=== PATIENT | male | born 1965 ===

== ENCOUNTER 2025-04-15 17:26 | Inpatient (IN) ==
--- NOTE | 2025-04-15 17:40 | Emergency Department Note ---
Impression & Plan Acute lower GI bleeding, Syncope, MICHAELLE (acute kidney injury), Metabolic acidosis, Acidosis, lactic ED Provider Note NAME: MASON MINA AGE: 59 SEX: M : 1965 ARRIVES VIA: Ambulance INFORMANT: Patient, EMS ED PROVIDER(S): Matti Akins DO CHIEF COMPLAINT: Syncope HPI: The patient is a 59-year-old male who has a history of hypertension and high cholesterol presented to the emergency department for evaluation after having a syncopal episode. He states that he started having some abdominal cramping and thought he had to move his bowels. While he was moving his bowels he had an episode where he passed out. The patient denies having any fever or chest pain. He denies having any difficulty breathing. He is normally from [place] but is in this area to help his daughter pack up and move home at the end of the semester. The patient denies having any headache. The patient was hypotensive according to the prehospital personnel. The patient received IV fluids prior to arrival. ROS: See above HPI for pertinent positives & negatives. A total of 10 systems reviewed and were otherwise negative. PAST MEDICAL HISTORY: See Below PAST SURGICAL HISTORY: See Below FAMILY HISTORY: See Below SOCIAL HISTORY: See Below HOME MEDICATIONS: See Below ALLERGIES: See Below VITALS: See Below PHYSICAL EXAMINATION: GENERAL: The patient is awake and alert. The patient is somewhat anxious appearing. EYES: The conjunctivae are clear. The pupils are round and reactive. EARS, NOSE, MOUTH AND THROAT: The nose is without any evidence of any deformity. NECK: The neck is nontender and supple. RESPIRATORY: Normal respiratory effort is noted there is no evidence of wheezing rhonchi or rales CARDIOVASCULAR: Regular rate and rhythm noted there no murmurs rubs or gallops normal S1 normal S2. GASTROINTESTINAL: The abdomen was distended. There is diffuse tenderness to palpation but no specific guarding rigidity. MUSCULOSKELETAL/EXTREMITIES: There is no evidence of gross deformity full range of motion is noted in the hips and shoulders. SKIN: The skin is cool and dry. The skin is still not erythematous. There is no edema. NEUROLOGIC: Patient is awake alert and oriented x3 strength is symmetric patellar reflexes are 2+ bilaterally MEDICAL DECISION MAKING: The patient is a 59-year-old male who presented to the emergency department for an evaluation. The patient had a syncopal episode. The patient is up moving his daughter back home for the holiday. She is currently a student at [employer]. The patient has a history of hypertension as well as high cholesterol. The patient had a syncopal episode and was brought to the emergency department. Reportedly he was hypotensive on scene. The patient had an acceptable blood pressure but would fluctuate into a hypotensive range. For this reason he was started on IV fluids in the emergency department. He was found to have an elevated lactate as well as an elevated creatinine and white blood cell count. For this reason further testing was obtained including blood cultures. The patient was treated with IV antibiotics. He was further resuscitated with IV fluids. I discussed the patient's laboratory and radiographic studies with him. The patient started having episodes of bright red blood per rectum. I discussed his condition with the on-call [facility]ist. He would appear to be a better candidate for inpatient management. CT scans were obtained. The patient was much more comfortable on reevaluation. Triage Nursing notes reviewed. Prior medical records reviewed Vital Signs: reviewed and remarkable for initial hypotension. Differential diagnosis: Vasovagal event, dehydration, infection, hypoglycemia, electrolyte abnormalities, cardiac sources, intracerebral event, pulmonary embolism, seizure, toxicologic, neurologic, as well as other pathologies. ER treatment provided: See below Diagnostics interpreted by me: ECG: EKG was obtained in the emergency department. My interpretation is normal sinus rhythm at 80 bpm. There was no ectopy. Nonspecific ST depressions were noted in the lower lateral leads. QTc was 461 ms. A prehospital EKG was reviewed. My interpretation is sinus rhythm at 85 bpm. There is no PVCs noted. Nonspecific ST abnormalities were noted especially in the low lateral leads. This compares similar to the tracing obtained in the emergency department. Cardiac Monitoring: An order was placed for continuous cardiac monitoring. The monitor shows a rate of 77 bpm with sinus rhythm. Laboratory studies: As stated above and show below. Imaging studies: See below. Radiographic imaging was reviewed by myself Consultation(s): I discussed this case with Dr. Gayle who is on-call for the [facility] group. ED COURSE: Procedures: none Critical Care: I have personally spent greater than 45 minutes of critical care time in the direct management of this patient. This includes bedside care, interpretation of diagnostic studies, and testing, discussion with consultants, patient, and family members, and other required patient management activities. This 45 minutes is in excess of all separately billable procedures. Past Med/Surg History Problem List (Updated 04/15/25 @ 20:49 by Matti Akins DO) Acidosis, lactic (Acute) Metabolic acidosis (Acute) MICHAELLE (acute kidney injury) (Acute) Syncope (Acute) Acute lower GI bleeding (Acute) Medical History History of high cholesterol Hypertension Social History Smoking Status: Current every day smoker Tobacco Type: Cigarettes Preferred Language: Citizen Of [place] Feels Safe at Home: Yes Allergies Allergies Allergy/AdvReac Type Severity Reaction Status Date / Time Penicillins Allergy Unknown Unknown Verified 04/15/25 19:09 Home Meds Home Medications Medication Instructions Recorded Confirmed amlodipine 10 mg tablet 10 mg PO QAM 04/15/25 04/15/25 aspirin 81 mg tablet,delayed 81 mg PO QAM 04/15/25 04/15/25 release cephalexin 500 mg capsule 500 mg PO Q6 04/15/25 04/15/25 escitalopram oxalate 20 mg tablet 20 mg PO QAM 04/15/25 04/15/25 esomeprazole magnesium 40 mg 40 mg PO QAM 04/15/25 04/15/25 capsule,delayed release ezetimibe 10 mg tablet 10 mg PO QAM 04/15/25 04/15/25 hydrochlorothiazide 25 mg tablet 25 mg PO QAM 04/15/25 04/15/25 lamotrigine 200 mg tablet 300 mg PO QAM 04/15/25 04/15/25 losartan 100 mg tablet 100 mg PO QAM 04/15/25 04/15/25 rosuvastatin 40 mg tablet 40 mg PO QAM 04/15/25 04/15/25 sildenafil 100 mg tablet 100 mg PO DAILY PRN Erectile 04/15/25 04/15/25 Dysfunction tirzepatide (weight loss) 12.5 12.5 mg subcut WK 04/15/25 04/15/25 mg/0.5 mL subcutaneous pen injector (Zepbound) Results & Data (ED) Vital Signs Vital Signs - 24 hr 04/15/25 17:15 04/15/25 17:15 04/15/25 17:34 Temperature 36.4 C L Temperature Source Oral Pulse Rate 88 Pulse Rhythm Regular Pulse Strength Normal Respiratory Rate 18 Respiratory Effort / Characteristics Non-Labored Spontaneous Respiratory Depth Normal Respiratory Pattern Regular Blood Pressure 121/59 L Blood Pressure Mean 79 Blood Pressure Position Lying Pulse Oximetry 99 99 99 Oxygen Delivery Method Room Air Room Air Sepsis Recent Fever Within 48 Hours No Sepsis New/Unexplained Change in Mental Status No Sepsis Action Taken by Nursing No Action Required 04/15/25 17:52 04/15/25 19:26 04/15/25 19:43 Temperature Temperature Source Pulse Rate 75 76 64 Pulse Rhythm Pulse Strength Respiratory Rate 22 22 Respiratory Effort / Characteristics Respiratory Depth Respiratory Pattern Blood Pressure 126/83 134/81 Blood Pressure Mean 99 107 Blood Pressure Position Pulse Oximetry 97 Oxygen Delivery Method Sepsis Recent Fever Within 48 Hours Sepsis New/Unexplained Change in Mental Status Sepsis Action Taken by Nursing 04/15/25 19:45 04/15/25 20:00 04/15/25 20:15 Temperature Temperature Source Pulse Rate 68 67 68 Pulse Rhythm Pulse Strength Respiratory Rate 20 21 22 Respiratory Effort / Characteristics Respiratory Depth Respiratory Pattern Blood Pressure 126/74 132/74 128/73 Blood Pressure Mean 103 92 90 Blood Pressure Position Pulse Oximetry 98 97 98 Oxygen Delivery Method Sepsis Recent Fever Within 48 Hours Sepsis New/Unexplained Change in Mental Status Sepsis Action Taken by Nursing 04/15/25 20:31 Temperature Temperature Source Pulse Rate 77 Pulse Rhythm Pulse Strength Respiratory Rate 18 Respiratory Effort / Characteristics Respiratory Depth Respiratory Pattern Blood Pressure 119/70 Blood Pressure Mean 93 Blood Pressure Position Pulse Oximetry 98 Oxygen Delivery Method Sepsis Recent Fever Within 48 Hours Sepsis New/Unexplained Change in Mental Status Sepsis Action Taken by Long Term Medications Current Medication List: was personally reviewed by me Laboratory Data Attestation: I reviewed the patient's lab results. 04/15/25 17:40 04/15/25 17:40 Lab Results 04/15/25 04/15/25 04/15/25 Range/Units 17:40 17:44 18:54 WBC 22.86 H (4.8-10.8) K/ul RBC 5.77 (4.70-6.10) M/uL Hgb 18.1 H (14.0-18.0) g/dL POC Hgb 18.0 (14.0-18.0) g/dl Hct 52.2 H (42.0-52.0) % POC Hct 53 H (42-52) % MCV 90.5 (80.0-100.0) fL MCH 31.4 (25.0-34.0) pg MCHC 34.7 (32.0-36.0) g/dL RDW Std Deviation 41.0 (36.4-46.3) fL RDW Coeff of Augie 12.5 (11.5-14.5) % Plt Count 302 (130-400) K/uL MPV 9.1 L (9.4-12.4) fL Immature Gran % (Auto) 0.5 % Neut % (Auto) 81.6 % Lymph % (Auto) 14.5 % Woodruff % (Auto) 2.5 % Eos % (Auto) 0.6 % Baso % (Auto) 0.3 % Neut # (Auto) 18.67 H (1.40-6.50) K/uL Lymph # (Auto) 3.31 (1.20-3.40) K/uL Woodruff # (Auto) 0.57 (0.11-0.59) K/uL Eos # (Auto) 0.13 (0.00-0.50) K/uL Baso # (Auto) 0.06 (0.00-0.20) K/uL Immature Gran # (Auto) 0.12 (0.01-0.20) K/uL PT 12.4 H (9.0-12.0) Seconds INR 1.2 H (0.9-1.1) APTT 23 (21-31) Seconds PTT Ratio 0.8 VBG pH (7.36-7.41) VBG pCO2 (38-50) mmHg VBG pO2 mmHg VBG HCO3 mmol/L VBG O2 Saturation % VBG Base Excess mEq/L POC Sodium 139 (135-144) mmol/L Sodium 137 (136-145) mmol/L POC Potassium 3.0 L (3.3-5.0) mmol/L Potassium 3.1 L (3.5-5.1) mmol/L POC Chloride 101 (101-112) mmol/L Chloride 99 (98-107) mmol/L Carbon Dioxide 20 L (21-32) mmol/L POC Total CO2 18 L (24-31) mmol/L Anion Gap 18 H (3-11) POC Anion Gap 24.0 (16-25) mmol/L POC BUN 30 H (7-18) mg/dl BUN 29 H (6-23) mg/dl Creatinine 2.11 H (0.6-1.4) mg/dl POC Creatinine 2.3 H (0.6-1.3) mg/dl Est Cr Clr Drug Dosing Not Reportable eGFR 35.61 BUN/Creatinine Ratio 13.7 (10-20) Glucose 268 H (70-99(Fasting)) mg/dl POC Glucose (other) 255 H (70-99) mg/dl Lactate 6.0 H* (0.4-2.0) mmol/L Calcium 9.1 (8.6-10.3) mg/dl POC Ioniz Calcium Shelley 1.09 L (1.12-1.32) mmol/l Magnesium 2.3 (1.7-2.4) mg/dl Total Bilirubin 1.2 H (0.2-1.0) mg/dl AST 42 H (13-39) U/L ALT 37 (7-52) U/L Alkaline Phosphatase 86 (34-104) U/L Troponin I High Sens 21.0 H (0-20) pg/ml C-Reactive Protein < 0.50 (0-0.5) mg/dl Total Protein 6.9 (6.0-8.3) gm/dl Albumin 4.1 (3.4-5.0) gm/dl Globulin 2.8 (2.5-4.0) gm/dl Albumin/Globulin Ratio 1.5 (0.9-2) Procalcitonin 0.02 (0-0.5) ng/ml TSH 5.577 H (0.300-4.500) uIu/ml Free T4 0.72 (0.61-1.60) ng/dl Stl C. cayetanensis PCR (NotDetected) Stool Rotavirus A PCR (NotDetected) Stl Adenov F 40/41 PCR (NotDetected) Stool Astrovirus (PCR) (NotDetected) Stool Campylobacter PCR (NotDetected) Stl C. diff Tox B Gene (Neg) Stl C. diff 027-NAP1-BI Stool Cryptosporidium PCR (NotDetected) Stl E.coli Shiga Tox PCR (NotDetected) Stl Enterotoxigenic E PCR (NotDetected) Stool EPEC (PCR) (NotDetected) Stool EAEC (PCR) (NotDetected) Stl E. histolytica PCR (NotDetected) Stool Giardia Lamblia PCR (NotDetected) Stool Salmonella PCR (NotDetected) Stool Sapovirus (PCR) (NotDetected) Stl P. shigelloides PCR (NotDetected) Stl Shigella/EIEC PCR (NotDetected) St Y.enterocolitica PCR (NotDetected) Stool Vibrio (PCR) (NotDetected) Stl Vibrio cholerae PCR (NotDetected) Stl Norovirus GI/GII PCR (NotDetected) Ethyl Alcohol mg/dL < 10.0 (<10.0) mg/dl Blood Type Antibody Screen 04/15/25 04/15/25 04/15/25 Range/Units 19:13 19:28 19:54 WBC (4.8-10.8) K/ul RBC (4.70-6.10) M/uL Hgb (14.0-18.0) g/dL POC Hgb (14.0-18.0) g/dl Hct (42.0-52.0) % POC Hct (42-52) % MCV (80.0-100.0) fL MCH (25.0-34.0) pg MCHC (32.0-36.0) g/dL RDW Std Deviation (36.4-46.3) fL RDW Coeff of Augie (11.5-14.5) % Plt Count (130-400) K/uL MPV (9.4-12.4) fL Immature Gran % (Auto) % Neut % (Auto) % Lymph % (Auto) % Woodruff % (Auto) % Eos % (Auto) % Baso % (Auto) % Neut # (Auto) (1.40-6.50) K/uL Lymph # (Auto) (1.20-3.40) K/uL Woodruff # (Auto) (0.11-0.59) K/uL Eos # (Auto) (0.00-0.50) K/uL Baso # (Auto) (0.00-0.20) K/uL Immature Gran # (Auto) (0.01-0.20) K/uL PT (9.0-12.0) Seconds INR (0.9-1.1) APTT (21-31) Seconds PTT Ratio VBG pH 7.38 (7.36-7.41) VBG pCO2 44 (38-50) mmHg VBG pO2 21 mmHg VBG HCO3 26 mmol/L VBG O2 Saturation < 60.0 % VBG Base Excess 0.5 mEq/L POC Sodium (135-144) mmol/L Sodium (136-145) mmol/L POC Potassium (3.3-5.0) mmol/L Potassium (3.5-5.1) mmol/L POC Chloride (101-112) mmol/L Chloride (98-107) mmol/L Carbon Dioxide (21-32) mmol/L POC Total CO2 (24-31) mmol/L Anion Gap (3-11) POC Anion Gap (16-25) mmol/L POC BUN (7-18) mg/dl BUN (6-23) mg/dl Creatinine (0.6-1.4) mg/dl POC Creatinine (0.6-1.3) mg/dl Est Cr Clr Drug Dosing eGFR BUN/Creatinine Ratio (10-20) Glucose (70-99(Fasting)) mg/dl POC Glucose (other) (70-99) mg/dl Lactate (0.4-2.0) mmol/L Calcium (8.6-10.3) mg/dl POC Ioniz Calcium Shelley (1.12-1.32) mmol/l Magnesium (1.7-2.4) mg/dl Total Bilirubin (0.2-1.0) mg/dl AST (13-39) U/L ALT (7-52) U/L Alkaline Phosphatase (34-104) U/L Troponin I High Sens 49.7 H D (0-20) pg/ml C-Reactive Protein (0-0.5) mg/dl Total Protein (6.0-8.3) gm/dl Albumin (3.4-5.0) gm/dl Globulin (2.5-4.0) gm/dl Albumin/Globulin Ratio (0.9-2) Procalcitonin (0-0.5) ng/ml TSH (0.300-4.500) uIu/ml Free T4 (0.61-1.60) ng/dl Stl C. cayetanensis PCR Not Detected (NotDetected) Stool Rotavirus A PCR Not Detected (NotDetected) Stl Adenov F 40/41 PCR Not Detected (NotDetected) Stool Astrovirus (PCR) Not Detected (NotDetected) Stool Campylobacter PCR Not Detected (NotDetected) Stl C. diff Tox B Gene Negative Cdiff Gene (Neg) Stl C. diff 027-NAP1-BI NEGATIVE Stool Cryptosporidium PCR Not Detected (NotDetected) Stl E.coli Shiga Tox PCR Not Detected (NotDetected) Stl Enterotoxigenic E PCR Not Detected (NotDetected) Stool EPEC (PCR) Not Detected (NotDetected) Stool EAEC (PCR) Not Detected (NotDetected) Stl E. histolytica PCR Not Detected (NotDetected) Stool Giardia Lamblia PCR Not Detected (NotDetected) Stool Salmonella PCR Not Detected (NotDetected) Stool Sapovirus (PCR) Not Detected (NotDetected) Stl P. shigelloides PCR Not Detected (NotDetected) Stl Shigella/EIEC PCR Not Detected (NotDetected) St Y.enterocolitica PCR Not Detected (NotDetected) Stool Vibrio (PCR) Not Detected (NotDetected) Stl Vibrio cholerae PCR Not Detected (NotDetected) Stl Norovirus GI/GII PCR Not Detected (NotDetected) Ethyl Alcohol mg/dL (<10.0) mg/dl Blood Type A Positive Antibody Screen NEGATIVE Administered Medications Potassium Chloride 20 meq/ (Lactated Ringer's) 1,010 mls @ 500 mls/hr IV .Q2H2M ONE Stop: 04/15/25 22:03 Last Admin: 04/15/25 20:46 Dose: 500 mls/hr Documented By: audie Metronidazole (Flagyl) 500 mg in 100 mls @ 100 mls/hr IV NOW STA; Protocol Stop: 04/15/25 21:08 Last Admin: 04/15/25 20:46 Dose: 100 mls/hr Documented By: audie Discontinued Medications Sodium Chloride (Nss) 1,000 mls @ 999 mls/hr IV .Q1H1M JOHNNIE Stop: 04/15/25 18:45 Last Infusion: 04/15/25 20:41 Dose: Infused Documented By: audie Admin: 04/15/25 19:34 Dose: 999 mls/hr Documented By: LEOLA Sodium Chloride (Nss) 1,000 mls @ 999 mls/hr IV .Q1H1M ONE Stop: 04/15/25 18:48 Last Infusion: 04/15/25 20:40 Dose: Infused Documented By: audie Admin: 04/15/25 19:28 Dose: 999 mls/hr Documented By: LEOLA Piperacillin Sod/Tazobactam Sod (Zosyn) 4.5 gm in 100 mls @ 200 mls/hr IV NOW ONE; Protocol Stop: 04/15/25 19:33 Last Admin: 04/15/25 19:40 Dose: Not Given Documented By: audie Cefoxitin Sodium (Mefoxin) 2,000 mg in 60 mls @ 100 mls/hr IV NOW STA Stop: 04/15/25 19:41 Last Infusion: 04/15/25 20:40 Dose: Infused Documented By: audie Admin: 04/15/25 19:30 Dose: 100 mls/hr Documented By: LEOLA Ioversol (Optiray 320 125ml) 93 ml IV ONCE ONE Stop: 04/15/25 19:19 Last Admin: 04/15/25 19:44 Dose: Not Given Documented By: LEOLA Ioversol (Optiray 320 125ml) 119 ml IV ONCE ONE Stop: 04/15/25 19:20 Last Admin: 04/15/25 19:19 Dose: 119 ml Documented By: CHRISTEL Ondansetron HCl (Ondansetron Inj 2 Mg/Ml 2 Ml Vial) 4 mg IV NOW STA Stop: 04/15/25 19:07 Last Admin: 04/15/25 19:28 Dose: 4 mg Documented By: LEOLA Potassium Chloride (Potassium Chloride Crtab 20 Meq Tabcr) 40 meq PO NOW STA Stop: 04/15/25 20:06 Last Admin: 04/15/25 20:46 Dose: 40 meq Documented By: audie Imaging Data Attestation: I personally reviewed and interpreted this imaging study as follows: My Impression: CT of the abdomen and pelvis was obtained in the emergency department. My interpretation is no free air or definite bowel obstruction, final report below. Radiologist's Impression: Head CT 04/15/25 17:34 CT of the head without contrast Technique: Noncontrast axial images of the head. Coronal and sagittal reformatted images made available for review No comparison Findings: No acute intracranial hemorrhage. No acute transcortical infarct. No midline shift. Ventricles, sulci, cisterns within normal limits. Bone windows demonstrate no focal abnormality Impression Head CT negative for acute intracranial abnormality. Electronically signed by Khai Nichols 04-15-2025 8:46 PM Chest CTA 04/15/25 18:36 CT angiogram of the chest Technique: Postcontrast axial image chest. Coronal and sagittal reformatted images made for review No comparison Findings: Exam limited secondary to phase of contrast administration. No large central pulmonary embolus present. Thoracic aorta is unremarkable. Coronary artery calcifications. No acute pulmonary pathology. Bone windows demonstrate no focal abnormality Impression Exam limited as described above No large central pulmonary embolus Electronically signed by Khai Nichols 04-15-2025 8:46 PM Abdomen/Pelvis CTA 04/15/25 19:07 CT angiogram of the abdomen and pelvis. Technique: Postcontrast axial images of the abdomen and pelvis. Coronal and sagittal reformatted images made available for review No comparison Findings: The presence or absence of a gastrointestinal hemorrhage is somewhat limited secondary to lack of a unenhanced phase of contrast administration. Despite this limitation no area of active contrast extravasation is identified on this exam. Subtle inflammatory changes and wall thickening involving the entire descending colon consistent with very mild colitis likely infectious or inflammatory etiology. Normal-appearing retrocecal appendix. No free air or intestinal obstruction. Solid abdominal organs unremarkable in appearance. No stenosis, dissection, aneurysm, or occlusion. Mesenteric and renal arteries are widely patent. Common external iliac arteries are widely patent. Internal iliac arteries are widely patent. Both common femoral arteries are widely patent. The visualized portion of the profunda femoris and superficial femoral arteries are all widely patent. Bone windows demonstrate no focal abnormality Impression Mild descending colitis likely of infectious or inflammatory etiology. No evidence of gastrointestinal hemorrhage identified on this study. Electronically signed by Khai Nichols 04-15-2025 8:46 PM Discharge Plan Visit Data Chief Complaint: Syncope Stated Complaint: syncope ED Provider: Matti Akins Discharge Problem: Acute lower GI bleeding, Syncope, MICHAELLE (acute kidney injury), Metabolic acidosis, Acidosis, lactic Patient Disposition: Being Evaluated by Hospitalist Condition: Fair Forms Stand Alone Forms: My [facility] Prescriptions Prescriptions: No Action lamotrigine 200 mg tablet 300 mg PO QAM Rx Instructions: 1 & 1/2 tablet dose sildenafil 100 mg tablet 100 mg PO DAILY PRN (Reason: Erectile Dysfunction) amlodipine 10 mg tablet 10 mg PO QAM cephalexin 500 mg capsule 500 mg PO Q6 Rx Instructions: ordered 04/06/25 for 10 days esomeprazole magnesium 40 mg capsule,delayed release(DR/EC) 40 mg PO QAM hydrochlorothiazide 25 mg tablet 25 mg PO QAM losartan 100 mg tablet 100 mg PO QAM escitalopram oxalate 20 mg tablet 20 mg PO QAM ezetimibe 10 mg tablet 10 mg PO QAM rosuvastatin 40 mg tablet 40 mg PO QAM Zepbound 12.5 mg/0.5 mL pen injector 12.5 mg SUBCUT WK Rx Instructions: tuesdays aspirin [Aspirin Low-Strength] 81 mg Tablet,Delayed Release (Dr/Ec) 81 mg PO QAM Referrals Referrals: PCP,NO [Primary Care Provider] -
[2025-04-15 17:58] LABS: Hematocrit (blood only) 52.2 % (42.0-52.0); Hemoglobin 18.1 g/dL (14.0-18.0); Immature Granulocytes # (auto) 0.12 K/uL (0.01-0.20); Immature Granulocytes % (auto) 0.5 %; Mean Corpuscular Hemoglobin 31.4 pg (25.0-34.0); Mean Corpuscular Volume 90.5 fL (80.0-100.0); Platelet Count 302 K/uL (130-400); RDW Standard Deviation 41.0 fL (36.4-46.3); Red Blood Count 5.77 M/uL (4.70-6.10); White Blood Count 22.86 K/ul (4.8-10.8)
[2025-04-15 18:14] LABS: Alanine Aminotransferase 37 U/L (7-52); Albumin Globulin Ratio 1.5 (0.9-2); Albumin Level 4.1 gm/dl (3.4-5.0); Alkaline Phosphatase 86 U/L (34-104); Anion Gap 18 (3-11); Bilirubin,Total 1.2 mg/dl (0.2-1.0); Blood Urea Nitrogen 29 mg/dl (6-23); Calcium 9.1 mg/dl (8.6-10.3); Carbon Dioxide 20 mmol/L (21-32); Chloride 99 mmol/L (98-107); Globulin 2.8 gm/dl (2.5-4.0); Glucose 268 mg/dl (70-99(Fasting)); Magnesium 2.3 mg/dl (1.7-2.4); Potassium 3.1 mmol/L (3.5-5.1); Sodium 137 mmol/L (136-145); Total Protein 6.9 gm/dl (6.0-8.3)
[2025-04-15 18:22] LABS: INR 1.2 (0.9-1.1); Partial Thromboplastin Time 23 Seconds (21-31); Prothrombin Time 12.4 Seconds (9.0-12.0)
[2025-04-15 18:29] LABS: Thyroid Stimulating Hormone 5.577 uIu/ml (0.300-4.500)
[2025-04-15 19:04] LABS: T4 Free Thyroxine 0.72 ng/dl (0.61-1.60)
[2025-04-15] MEDS: OPTIRAY 320 125ml IV ONE ×2 (19:19→19:44)
[2025-04-15] MEDS: SODIUM CHLORIDE 0.9% 1,000 ML IV ONE (19:28)
[2025-04-15] MEDS: ONDANSETRON INJ 2 MG/ML 2 ML VIAL IV STA (19:28)
[2025-04-15] MEDS: cefOXitin 2,000 MG/60 ML BAG IV STA (19:30)
[2025-04-15] MEDS: SODIUM CHLORIDE 0.9% 1,000 ML IV SCH (19:34)
[2025-04-15] MEDS: PIPERACILLIN/TAZOBACTAM 4.5 GM/100 ML BAG IV ONE (19:40)
[2025-04-15 20:10] LABS: Base Excess VBG 0.5 mEq/L; HCO3 VBG 26 mmol/L; Oxygen Saturation VBG < 60.0 %; PCO2 VBG 44 mmHg (38-50); PO2 VBG 21 mmHg; pH VBG 7.38 (7.36-7.41)
[2025-04-15 20:11] LABS: Cdiff Toxin B Gene (2yr or >) Negative Cdiff Gene (Neg)
[2025-04-15 20:44] LABS: Adenovirus F 40/41 PCR Not Detected (NotDetected); Campylobacter PCR Not Detected (NotDetected); Enteroaggregative E.coli(EAEC) Not Detected (NotDetected); Shiga-like Toxin E.coli (STEC) Not Detected (NotDetected); Vibrio species PCR Not Detected (NotDetected)
[2025-04-15] MEDS: metroNIDAZOLE 500 MG/100 ML BAG IV STA (20:46)
[2025-04-15] MEDS: POTASSIUM CHLORIDE CRTAB 20 MEQ TABCR PO STA (20:46)
[2025-04-15] MEDS: POTASSIUM CHLORIDE 20 MEQ in LACTATED RINGER'S 1,000 ML IV ONE ×2 (20:46→22:57)
--- NOTE | 2025-04-15 20:46 | CT Scan Report ---
CT angiogram of the chest Technique: Postcontrast axial image chest. Coronal and sagittal reformatted images made for review No comparison Findings: Exam limited secondary to phase of contrast administration. No large central pulmonary embolus present. Thoracic aorta is unremarkable. Coronary artery calcifications. No acute pulmonary pathology. Bone windows demonstrate no focal abnormality Impression Exam limited as described above No large central pulmonary embolus Electronically signed by Khai Nichols 04-15-2025 8:46 PM
--- NOTE | 2025-04-15 20:47 | CT Scan Report ---
CT angiogram of the abdomen and pelvis. Technique: Postcontrast axial images of the abdomen and pelvis. Coronal and sagittal reformatted images made available for review No comparison Findings: The presence or absence of a gastrointestinal hemorrhage is somewhat limited secondary to lack of a unenhanced phase of contrast administration. Despite this limitation no area of active contrast extravasation is identified on this exam. Subtle inflammatory changes and wall thickening involving the entire descending colon consistent with very mild colitis likely infectious or inflammatory etiology. Normal-appearing retrocecal appendix. No free air or intestinal obstruction. Solid abdominal organs unremarkable in appearance. No stenosis, dissection, aneurysm, or occlusion. Mesenteric and renal arteries are widely patent. Common external iliac arteries are widely patent. Internal iliac arteries are widely patent. Both common femoral arteries are widely patent. The visualized portion of the profunda femoris and superficial femoral arteries are all widely patent. Bone windows demonstrate no focal abnormality Impression Mild descending colitis likely of infectious or inflammatory etiology. No evidence of gastrointestinal hemorrhage identified on this study. Electronically signed by Khai Nichols 04-15-2025 8:46 PM
--- NOTE | 2025-04-15 20:47 | CT Scan Report ---
CT of the head without contrast Technique: Noncontrast axial images of the head. Coronal and sagittal reformatted images made available for review No comparison Findings: No acute intracranial hemorrhage. No acute transcortical infarct. No midline shift. Ventricles, sulci, cisterns within normal limits. Bone windows demonstrate no focal abnormality Impression Head CT negative for acute intracranial abnormality. Electronically signed by Khai Nichols 04-15-2025 8:46 PM
--- NOTE | 2025-04-15 20:50 | History & Physical Report ---
Date of Service April 15, 2025 Assessment & Plan (1) Colitis: Plan: Assessment and plan below following discussion of case with ED provider and reviewing patient history/pertinent normal/abnormal diagnostic test results. Hemorrhagic colitis Syncope Multifactorial Vagal component given bearing-down history on the commode orthostasis secondary to LGIB given pre-ED hypotension as per EMS account ARF, lactic acidosis secondary to illness Troponin elevation in the setting of kidney dysfunction and daughter's CPR efforts prior to EMS arrival, patient without chest pain/SOB hypertension, currently stable hyperlipidemia, on statin Rx lung carcinoid status post surgery, in remission prediabetes GERD, on PPI mood disorder, stable occasional heavy alcohol intake dental infection ongoing Keflex Rx Hypokalemia secondary to home diuretic Rx/diarrhea Subclinical hypothyroidism, elevated TSH with normal free T4 past tobacco abuse Admit to med/tele Clear liquid diet for now Ceftriaxone, Flagyl for hemorrhagic colitis Hold home aspirin for now (Patient taking medication given strong family history of heart disease as per her account.) Follow H&H, transfuse PRBC to maintain hemoglobin of at least 7 and or for symptomatic anemia GI consult re: hemorrhagic colitis Check orthostatic vitals Baseline UA, monitor creatinine and lactic acid response to IVF, appropriate to hold losartan/HCTZ Rx until creatinine back to baseline Follow troponin, TTE for progression GINA S at risk protocol, DT precautions Replace potassium Check hemoglobin A1c with a.m. labs Recheck TSH outpatient next month DVT prophylaxis. SCDs re: GI bleed Full code Patient daughter requesting updates providers. Ms. Nishi Dinh, contact #[phone]. Text document was generated using [employer] voice recognition software. It may contain grammatical or spelling errors. Kindly contact undersigned for clarification of any documentation item in question. History of Present Illness Chief Complaint: Syncope Primary Care Provider: Dr. Juan Abad of [place], [place] History obtained from patient, family, and records. Medical history significant for hypertension, hyperlipidemia, lung carcinoid status post surgery, prediabetes, GERD, mood disorder, occasional heavy alcohol intake, dental infection ongoing Keflex Rx, past tobacco abuse. 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 Daughter is graduating from [employer] next week. Patient had sudden onset of achy left-sided abdominal pain accompanied by sudden urge to defecate. Patient straining hard to move bowels on the commode. Unwitnessed syncopal event causing patient to fall off the toilet. No head trauma. No witnessed seizures. Patient daughter heard noise and found patient "breathing not very good." Patient daughter unable to check for pulse at onset. She called 911 who recommended chest compressions. Patient noted to have a pulse and spontaneously breathing although diaphoretic upon EMS arrival. Patient woke up with a sternal rub. Patient noted to be hypotensive as per EMS. Patient denies headache, chest pain, SOB, cough. Some nausea, no emesis. Last EtOH intake was about 2 days ago. Occasionally heavy as per patient admission. IV cefoxitin administered at the ER. Copious bloody diarrhea noted at the Emergency Room. No prior episodes. 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 Allergies Allergy/AdvReac Type Severity Reaction Status Date / Time Penicillins Allergy Unknown Unknown Verified 04/15/25 19:09 Home Medications Medication Instructions Recorded Confirmed Type amlodipine 10 mg tablet 10 mg PO QAM 04/15/25 04/15/25 History aspirin 81 mg tablet,delayed 81 mg PO QAM 04/15/25 04/15/25 History release cephalexin 500 mg capsule 500 mg PO Q6 04/15/25 04/15/25 History escitalopram oxalate 20 mg tablet 20 mg PO QAM 04/15/25 04/15/25 History esomeprazole magnesium 40 mg 40 mg PO QAM 04/15/25 04/15/25 History capsule,delayed release ezetimibe 10 mg tablet 10 mg PO QAM 04/15/25 04/15/25 History hydrochlorothiazide 25 mg tablet 25 mg PO QAM 04/15/25 04/15/25 History lamotrigine 200 mg tablet 300 mg PO QAM 04/15/25 04/15/25 History losartan 100 mg tablet 100 mg PO QAM 04/15/25 04/15/25 History rosuvastatin 40 mg tablet 40 mg PO QAM 04/15/25 04/15/25 History sildenafil 100 mg tablet 100 mg PO DAILY PRN Erectile 04/15/25 04/15/25 History Dysfunction tirzepatide (weight loss) 12.5 12.5 mg subcut WK 04/15/25 04/15/25 History mg/0.5 mL subcutaneous pen injector (Zepbound) Past Med/Surg History Problem List (Updated 04/15/25 @ 23:57 by John Gayle MD) Colitis Acidosis, lactic (Acute) Metabolic acidosis (Acute) MICHAELLE (acute kidney injury) (Acute) Syncope (Acute) Acute lower GI bleeding (Acute) Medical History History of high cholesterol Hypertension Social History Smoking Status: Never smoker Tobacco Type: Cigarettes Do You Dip or Chew Tobacco: Yes; Hx Alcohol Use: Yes Alcohol type: other Hx Substance Use: No Preferred Language: Italian Communication Ability: Effective Manufacturing Support 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 Required: No Beliefs That Will Affect Care: None Current Living Situation: Parent Other Information That Helps Us Care for You: No Feels Safe at Home: Yes Safety Concerns: Feels Safe At This Time Assistive Devices: Glasses Review of Systems Review of Systems: As per HPI, all other systems reviewed and negative Physical Exam Physical Exam: GENERAL: uncomfortable, obese, no respiratory distress SKIN: Normal color, warm HEENT: Alopecia, pink palpebral conjunctivae, no ptosis, dry buccal mucosa NECK : Supple, short neck, no tenderness CHEST : CTA, no tenderness HEART : RRR, no obvious murmurs ABDOMEN: Some distention, left-sided abdominal tenderness EXTREMITIES : No LE swelling/tenderness, palpable pulses, no other conspicuous deformities noted NEUROLOGIC : Coherent, no facial asymmetry, no other gross focality Results & Data Results & Data Vital Signs (Past 12 Hours) Vital Signs Temp Pulse Resp BP Pulse Ox O2 Del Method 04/15/25 20:31 77 18 119/70 98 04/15/25 20:15 68 22 128/73 98 04/15/25 20:00 67 21 132/74 97 04/15/25 19:45 68 20 126/74 98 04/15/25 19:43 64 22 134/81 97 04/15/25 19:26 76 22 126/83 04/15/25 17:52 75 04/15/25 17:34 99 04/15/25 17:15 99 Room Air 04/15/25 17:15 36.4 C L 88 18 121/59 L 99 Room Air Laboratory Results Laboratory Results WBC 22.86 K/ul (4.8-10.8) H 04/15/25 17:40 RBC 5.77 M/uL (4.70-6.10) 04/15/25 17:40 Hgb 18.1 g/dL (14.0-18.0) H 04/15/25 17:40 POC Hgb 18.0 g/dl (14.0-18.0) 04/15/25 17:44 Hct 52.2 % (42.0-52.0) H 04/15/25 17:40 POC Hct 53 % (42-52) H 04/15/25 17:44 MCV 90.5 fL (80.0-100.0) 04/15/25 17:40 MCH 31.4 pg (25.0-34.0) 04/15/25 17:40 MCHC 34.7 g/dL (32.0-36.0) 04/15/25 17:40 RDW Std Deviation 41.0 fL (36.4-46.3) 04/15/25 17:40 RDW Coeff of Augie 12.5 % (11.5-14.5) 04/15/25 17:40 Plt Count 302 K/uL (130-400) 04/15/25 17:40 MPV 9.1 fL (9.4-12.4) L 04/15/25 17:40 Immature Gran % (Auto) 0.5 % 04/15/25 17:40 Neut % (Auto) 81.6 % 04/15/25 17:40 Lymph % (Auto) 14.5 % 04/15/25 17:40 [place] % (Auto) 2.5 % 04/15/25 17:40 Eos % (Auto) 0.6 % 04/15/25 17:40 Baso % (Auto) 0.3 % 04/15/25 17:40 Neut # (Auto) 18.67 K/uL (1.40-6.50) H 04/15/25 17:40 Lymph # (Auto) 3.31 K/uL (1.20-3.40) 04/15/25 17:40 [place] # (Auto) 0.57 K/uL (0.11-0.59) 04/15/25 17:40 Eos # (Auto) 0.13 K/uL (0.00-0.50) 04/15/25 17:40 Baso # (Auto) 0.06 K/uL (0.00-0.20) 04/15/25 17:40 Immature Gran # (Auto) 0.12 K/uL (0.01-0.20) 04/15/25 17:40 PT 12.4 Seconds (9.0-12.0) H 04/15/25 17:40 INR 1.2 (0.9-1.1) H 04/15/25 17:40 APTT 23 Seconds (21-31) 04/15/25 17:40 PTT Ratio 0.8 04/15/25 17:40 VBG pH 7.38 (7.36-7.41) 04/15/25 19:54 VBG pCO2 44 mmHg (38-50) 04/15/25 19:54 VBG pO2 21 mmHg 04/15/25 19:54 VBG HCO3 26 mmol/L 04/15/25 19:54 VBG O2 Saturation < 60.0 % 04/15/25 19:54 VBG Base Excess 0.5 mEq/L 04/15/25 19:54 POC Sodium 139 mmol/L (135-144) 04/15/25 17:44 Sodium 137 mmol/L (136-145) 04/15/25 17:40 POC Potassium 3.0 mmol/L (3.3-5.0) L 04/15/25 17:44 Potassium 3.1 mmol/L (3.5-5.1) L 04/15/25 17:40 POC Chloride 101 mmol/L (101-112) 04/15/25 17:44 Chloride 99 mmol/L (98-107) 04/15/25 17:40 Carbon Dioxide 20 mmol/L (21-32) L 04/15/25 17:40 POC Total CO2 18 mmol/L (24-31) L 04/15/25 17:44 Anion Gap 18 (3-11) H 04/15/25 17:40 POC Anion Gap 24.0 mmol/L (16-25) 04/15/25 17:44 POC BUN 30 mg/dl (7-18) H 04/15/25 17:44 BUN 29 mg/dl (6-23) H 04/15/25 17:40 Creatinine 2.11 mg/dl (0.6-1.4) H 04/15/25 17:40 POC Creatinine 2.3 mg/dl (0.6-1.3) H 04/15/25 17:44 Est Cr Clr Drug Dosing Not Reportable 04/15/25 17:40 eGFR 35.61 04/15/25 17:40 BUN/Creatinine Ratio 13.7 (10-20) 04/15/25 17:40 Glucose 268 mg/dl (70-99(Fasting)) H 04/15/25 17:40 POC Glucose (other) 255 mg/dl (70-99) H 04/15/25 17:44 Lactate 6.0 mmol/L (0.4-2.0) H* 04/15/25 18:54 Calcium 9.1 mg/dl (8.6-10.3) 04/15/25 17:40 POC Ioniz Calcium Shelley 1.09 mmol/l (1.12-1.32) L 04/15/25 17:44 Magnesium 2.3 mg/dl (1.7-2.4) 04/15/25 17:40 Total Bilirubin 1.2 mg/dl (0.2-1.0) H 04/15/25 17:40 AST 42 U/L (13-39) H 04/15/25 17:40 ALT 37 U/L (7-52) 04/15/25 17:40 Alkaline Phosphatase 86 U/L (34-104) 04/15/25 17:40 Troponin I High Sens 49.7 pg/ml (0-20) H D 04/15/25 19:28 C-Reactive Protein < 0.50 mg/dl (0-0.5) 04/15/25 17:40 Total Protein 6.9 gm/dl (6.0-8.3) 04/15/25 17:40 Albumin 4.1 gm/dl (3.4-5.0) 04/15/25 17:40 Globulin 2.8 gm/dl (2.5-4.0) 04/15/25 17:40 Albumin/Globulin Ratio 1.5 (0.9-2) 04/15/25 17:40 Procalcitonin 0.02 ng/ml (0-0.5) 04/15/25 17:40 TSH 5.577 uIu/ml (0.300-4.500) H 04/15/25 17:40 Free T4 0.72 ng/dl (0.61-1.60) 04/15/25 17:40 Stl C. cayetanensis PCR Not Detected (NotDetected) 04/15/25 19:13 Stool Rotavirus A PCR Not Detected (NotDetected) 04/15/25 19:13 Stl Adenov F 41 PCR Not Detected (NotDetected) 04/15/25 19:13 Stool Astrovirus (PCR) Not Detected (NotDetected) 04/15/25 19:13 Stool Campylobacter PCR Not Detected (NotDetected) 04/15/25 19:13 Stl C. diff Tox B Gene Negative Cdiff Gene (Neg) 04/15/25 19:13 Stl C. diff [id number] NEGATIVE 04/15/25 19:13 Stool Cryptosporidium PCR Not Detected (NotDetected) 04/15/25 19:13 Stl E.coli Shiga Tox PCR Not Detected (NotDetected) 04/15/25 19:13 Stl Enterotoxigenic E PCR Not Detected (NotDetected) 04/15/25 19:13 Stool EPEC (PCR) Not Detected (NotDetected) 04/15/25 19:13 Stool EAEC (PCR) Not Detected (NotDetected) 04/15/25 19:13 Stl E. histolytica PCR Not Detected (NotDetected) 04/15/25 19:13 Stool Giardia Lamblia PCR Not Detected (NotDetected) 04/15/25 19:13 Stool Salmonella PCR Not Detected (NotDetected) 04/15/25 19:13 Stool Sapovirus (PCR) Not Detected (NotDetected) 04/15/25 19:13 Stl P. shigelloides PCR Not Detected (NotDetected) 04/15/25 19:13 Stl Shigella/EIEC PCR Not Detected (NotDetected) 04/15/25 19:13 St Y.enterocolitica PCR Not Detected (NotDetected) 04/15/25 19:13 Stool Vibrio (PCR) Not Detected (NotDetected) 04/15/25 19:13 Stl Vibrio cholerae PCR Not Detected (NotDetected) 04/15/25 19:13 Stl Norovirus GI/GII PCR Not Detected (NotDetected) 04/15/25 19:13 Ethyl Alcohol mg/dL < 10.0 mg/dl (<10.0) 04/15/25 17:40 Blood Type A Positive 04/15/25 19:28 Antibody Screen NEGATIVE 04/15/25 19:[address] 04/15/25 17:34 CT of the head without contrast Technique: Noncontrast axial images of the head. Coronal and sagittal reformatted images made available for review No comparison Findings: No acute intracranial hemorrhage. No acute transcortical infarct. No midline shift. Ventricles, sulci, cisterns within normal limits. Bone windows demonstrate no focal abnormality Impression Head CT negative for acute intracranial abnormality. Electronically signed by Khai Nichols 04-15-2025 8:46 PM Chest CTA 04/15/25 18:36 CT angiogram of the chest Technique: Postcontrast axial image chest. Coronal and sagittal reformatted images made for review No comparison Findings: Exam limited secondary to phase of contrast administration. No large central pulmonary embolus present. Thoracic aorta is unremarkable. Coronary artery calcifications. No acute pulmonary pathology. Bone windows demonstrate no focal abnormality Impression Exam limited as described above No large central pulmonary embolus Electronically signed by Khai Nichols 04-15-2025 8:46 PM Abdomen/Pelvis CTA 04/15/25 19:07 CT angiogram of the abdomen and pelvis. Technique: Postcontrast axial images of the abdomen and pelvis. Coronal and sagittal reformatted images made available for review No comparison Findings: The presence or absence of a gastrointestinal hemorrhage is somewhat limited secondary to lack of a unenhanced phase of contrast administration. Despite this limitation no area of active contrast extravasation is identified on this exam. Subtle inflammatory changes and wall thickening involving the entire descending colon consistent with very mild colitis likely infectious or inflammatory etiology. Normal-appearing retrocecal appendix. No free air or intestinal obstruction. Solid abdominal organs unremarkable in appearance. No stenosis, dissection, aneurysm, or occlusion. Mesenteric and renal arteries are widely patent. Common external iliac arteries are widely patent. Internal iliac arteries are widely patent. Both common femoral arteries are widely patent. The visualized portion of the profunda femoris and superficial femoral arteries are all widely patent. Bone windows demonstrate no focal abnormality Impression Mild descending colitis likely of infectious or inflammatory etiology. No evidence of gastrointestinal hemorrhage identified on this study. Electronically signed by Khai Nichols 04-15-2025 8:46 PM Diagnostic Findings EKG as per my interpretation :Rate 80, NSR, normal axis, inferior infarct, no ischemia
[2025-04-15 21:20] LABS: Hematocrit (blood only) 47.2 % (42.0-52.0); Hemoglobin 16.9 g/dL (14.0-18.0)
[2025-04-15] MEDS ORDERED: ACETAMINOPHEN 325 MG TAB PO PRN (21:29)
[2025-04-15 22:10] LABS: Creatine Kinase 395 U/L (30-223)
[2025-04-15] MEDS: THIAMINE HCL 100 MG in SYRINGE 9 ML IV STA (22:29)
[2025-04-15] MEDS: PROMETHAZINE 12.5 MG/50.5 ML BAG IV STA (22:31)
[2025-04-15] MEDS: ACETAMINOPHEN 1,000 MG/100 ML VIAL IV STA (22:35)
[2025-04-15] MEDS: LOPERAMIDE HCL 2 MG CAP PO STA (22:53)
[2025-04-15] MEDS: LORazepam 1 MG/1 ML SYR ED Inj Use IV STA (22:53)
[2025-04-16 00:47] LABS: Hematocrit (blood only) 43.4 % (42.0-52.0); Hemoglobin 15.4 g/dL (14.0-18.0)
[2025-04-16] MEDS: cefTRIAXone SODIUM 2,000 MG/50 ML BAG IV SCH (03:22)
[2025-04-16] MEDS: metroNIDAZOLE 500 MG/100 ML BAG IV SCH (05:48)
[2025-04-16 07:22] LABS: Hematocrit (blood only) 41.8 % (42.0-52.0); Hemoglobin 15.1 g/dL (14.0-18.0); Immature Granulocytes # (auto) 0.05 K/uL (0.01-0.20); Immature Granulocytes % (auto) 0.3 %; Mean Corpuscular Hemoglobin 32.5 pg (25.0-34.0); Mean Corpuscular Volume 90.1 fL (80.0-100.0); Platelet Count 256 K/uL (130-400); RDW Standard Deviation 41.2 fL (36.4-46.3); Red Blood Count 4.64 M/uL (4.70-6.10); White Blood Count 18.94 K/ul (4.8-10.8)
[2025-04-16 07:44] LABS: Alanine Aminotransferase 31.0 U/L (7-52); Albumin Globulin Ratio 2.0 (0.9-2); Albumin Level 4.5 gm/dl (3.4-5.0); Alkaline Phosphatase 68.0 U/L (34-104); Anion Gap 9.0 (3-11); Bilirubin,Total 1.0 mg/dl (0.2-1.0); Blood Urea Nitrogen 21.0 mg/dl (6-23); Calcium 8.4 mg/dl (8.6-10.3); Carbon Dioxide 24.0 mmol/L (21-32); Chloride 103.0 mmol/L (98-107); Creatine Kinase 470.0 U/L (30-223); Creatinine Clr Calc Pharmacy 91.5 ml/min; Globulin 2.3 gm/dl (2.5-4.0); Glucose 125.0 mg/dl (70-99(Fasting)); Potassium 4.2 mmol/L (3.5-5.1); Sodium 136.0 mmol/L (136-145); Total Protein 6.8 gm/dl (6.0-8.3)
[2025-04-16 08:07] LABS: Hemoglobin A1C 5.3 % (4.5-5.6)
[2025-04-16] MEDS ORDERED: ROSUVASTATIN CALCIUM 20 MG TAB PO SCH (09:00)
--- NOTE | 2025-04-16 09:02 | XCELERA ---
[id number] \\[id number]
[2025-04-16] MEDS: PROMETHAZINE 12.5 MG/50.5 ML BAG IV PRN (09:10)
[2025-04-16] MEDS: POTASSIUM CHLORIDE 20 MEQ in LACTATED RINGER'S 1,000 ML IV ONE (09:35)
[2025-04-16] MEDS: LOPERAMIDE HCL 2 MG CAP PO PRN (09:51)
--- NOTE | 2025-04-16 10:48 | Hospitalist Progress Note ---
Date of Service April 16, 2025 Assessment & Plan (1) Colitis: Plan: 59M with PMH HTN HLD anxiety mood disorder, alcohol use who presents with syncopal episode of bloody bowel movement #Hemorrhagic colitis -No history of same -No emesis -CT AP images reviewed, Descending colitis. 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 diff negative -Stool studies negative -Differential incudes infectious vs inflammatory vs ischemia -Still having bloody diarrhea as of this AM -Hgb stable. No acute blood loss anemia Plan -Appreciate GI input -Currently on CTX + flagyl given his WBC -CLD as tolerated -Symptomatic management for nausea -Continue IVF for today -Follow Hgb #Syncopal episode -ISO straining bowel movement -Consistent with vasovagal syncope -Do not believe he went into cardiac arrest after d/w daughter at bedside -Non specific trop elevation due to CPR, MICHAELLE. Low suspicion for ACS -TTE reviewed, normal EF, no WMAs Plan -Continue cardiac monitoring for today #Acute kidney injury -Pre renal due to above -CK mildly elevated but low suspicion for rhabdo -He was not in acute renal failure -Cr downtrending with IVF Plan -IVF for today -BMP in AM -Avoid nephrotoxic agents -Hold home hctz #HTN -BP acceptable -Resume home norvasc tomorrow if BP allows -Hold home HCTZ for now #Alcohol use -Intermittent heavy use, no s/s withdrawal at this time. monitor #HLD -Continue zetia -Hold crestor due to elevated CK but can resume on DC #Mood disorder -Continue home lamictal I spent a total of 51 minutes coordinating, documenting, and providing care for this patient excluding time spent in the performance of separately billed services. This included personally reviewing all current laboratories and imaging studies, medical reconciliation, outpatient chart review and discussion with specialists Admission and Anticipated Discharge Date Admission Date: April 15, 2025 Subjective Feeling well this AM. much better than yesterday. Still c/o blood diarrhea. abd pain still present as well. denies f/c cp palp dyspnea cough wheez. no dysuria d/w and daughter at bedside Physical Exam Physical Exam: Vitals and labs reviewed General: Well appearing, NAD HEENT: EOMI, PERRLA Neck: Supple Cardiac: RRR no rubs gallops or murmurs Lungs: CTA no rhonchi wheezing or rales Abd: S NT ND BS positive : Deffered MSK: Full ROM. No obvious deformities Ext: No Edema cyanosis Skin: Warm, Dry Neuro: AOx3 No focal deficits. Psych: Normal Mood Results & Data Results & Data Vital Signs (Past 12 Hours) Vital Signs Temp Pulse Pulse Resp BP Pulse Ox O2 Del Method 04/16/25 08:08 36.8 C 69 20 137/64 94 Room Air 04/16/25 08:08 86 04/16/25 03:26 67 04/16/25 03:03 36.7 C 73 18 131/64 93 Room Air 04/15/25 23:50 67 04/15/25 23:00 66 17 Laboratory Results Abnormal lab results 04/15/25 04/15/25 04/15/25 Range/Units 17:40 17:44 18:54 WBC 22.86 H (4.8-10.8) K/ul RBC (4.70-6.10) M/uL Hgb 18.1 H (14.0-18.0) g/dL Hct 52.2 H (42.0-52.0) % POC Hct 53 H (42-52) % MCHC (32.0-36.0) g/dL MPV 9.1 L (9.4-12.4) fL Neut # (Auto) 18.67 H (1.40-6.50) K/uL [place] # (Auto) (0.11-0.59) K/uL PT 12.4 H (9.0-12.0) Seconds INR 1.2 H (0.9-1.1) POC Potassium 3.0 L (3.3-5.0) mmol/L Potassium 3.1 L (3.5-5.1) mmol/L Carbon Dioxide 20 L (21-32) mmol/L POC Total CO2 18 L (24-31) mmol/L Anion Gap 18 H (3-11) POC BUN 30 H (7-18) mg/dl BUN 29 H (6-23) mg/dl Creatinine 2.11 H (0.6-1.4) mg/dl POC Creatinine 2.3 H (0.6-1.3) mg/dl Glucose 268 H (70-99(Fasting)) mg/dl POC Glucose (other) 255 H (70-99) mg/dl Lactate 6.0 H* (0.4-2.0) mmol/L Calcium (8.6-10.3) mg/dl POC Ioniz Calcium Shelley 1.09 L (1.12-1.32) mmol/l Total Bilirubin 1.2 H (0.2-1.0) mg/dl AST 42 H (13-39) U/L Total Creatine Kinase 395 H (30-223) U/L Troponin I High Sens 21.0 H (0-20) pg/ml Globulin (2.5-4.0) gm/dl TSH 5.577 H (0.300-4.500) uIu/ml 04/15/25 04/15/25 04/16/25 Range/Units 19:28 21:00 00:21 WBC (4.8-10.8) K/ul RBC (4.70-6.10) M/uL Hgb (14.0-18.0) g/dL Hct (42.0-52.0) % POC Hct (42-52) % MCHC (32.0-36.0) g/dL MPV (9.4-12.4) fL Neut # (Auto) (1.40-6.50) K/uL [place] # (Auto) (0.11-0.59) K/uL PT (9.0-12.0) Seconds INR (0.9-1.1) POC Potassium (3.3-5.0) mmol/L Potassium (3.5-5.1) mmol/L Carbon Dioxide (21-32) mmol/L POC Total CO2 (24-31) mmol/L Anion Gap (3-11) POC BUN (7-18) mg/dl BUN (6-23) mg/dl Creatinine (0.6-1.4) mg/dl POC Creatinine (0.6-1.3) mg/dl Glucose (70-99(Fasting)) mg/dl POC Glucose (other) (70-99) mg/dl Lactate 3.2 H* (0.4-2.0) mmol/L Calcium (8.6-10.3) mg/dl POC Ioniz Calcium Shelley (1.12-1.32) mmol/l Total Bilirubin (0.2-1.0) mg/dl AST (13-39) U/L Total Creatine Kinase (30-223) U/L Troponin I High Sens 49.7 H D 109.5 H* D 191.8 H* D (0-20) pg/ml Globulin (2.5-4.0) gm/dl TSH (0.300-4.500) uIu/ml 04/16/25 Range/Units 07:05 WBC 18.94 H (4.8-10.8) K/ul RBC 4.64 L (4.70-6.10) M/uL Hgb (14.0-18.0) g/dL Hct 41.8 L (42.0-52.0) % POC Hct (42-52) % MCHC 36.1 H (32.0-36.0) g/dL MPV 9.2 L (9.4-12.4) fL Neut # (Auto) 16.65 H (1.40-6.50) K/uL [place] # (Auto) 0.77 H (0.11-0.59) K/uL PT (9.0-12.0) Seconds INR (0.9-1.1) POC Potassium (3.3-5.0) mmol/L Potassium (3.5-5.1) mmol/L Carbon Dioxide (21-32) mmol/L POC Total CO2 (24-31) mmol/L Anion Gap (3-11) POC BUN (7-18) mg/dl BUN (6-23) mg/dl Creatinine (0.6-1.4) mg/dl POC Creatinine (0.6-1.3) mg/dl Glucose 125 H (70-99(Fasting)) mg/dl POC Glucose (other) (70-99) mg/dl Lactate (0.4-2.0) mmol/L Calcium 8.4 L (8.6-10.3) mg/dl POC Ioniz Calcium Shelley (1.12-1.32) mmol/l Total Bilirubin (0.2-1.0) mg/dl AST (13-39) U/L Total Creatine Kinase 470 H (30-223) U/L Troponin I High Sens 154.6 H* (0-20) pg/ml Globulin 2.3 L (2.5-4.0) gm/dl TSH (0.300-4.500) uIu/ml
--- NOTE | 2025-04-16 10:48 | Gastrointestinal Consultation ---
Date of Consultation April 16, 2025 Assessment & Plan (1) Colitis: Patient with sudden onset bloody bowel movements after a syncopal episode. CTA suggestive of mild descending colon colitis. This may be ischemic in origin. stool studies unremarkable. - recommend supportive care. - continue with IV antibiotics. 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 - will monitor how he does as he feels bleeding is slowing down. Further recommendations to come with Supervising GI provider on medical rounds. Please see co-signature comments. Supervising Physician Co-Signing Physician Notes Reviewed with GLORIA Salas, reviewed chart and imaging reviewed with patient at the bedside and completed abdominal exam. Presentation clinical course consistent with ischemic colitis. He is having some further cramping this p.m. CTA showed patent arteries. This type of ischemic colitis typically is in the watershed area. Typically resolves without intervention. If uncontrolled bleeding or evidence of worsening pain or acidosis that would be an indication for intervention typically surgical. Uncommon that this is required. White count above 20,000 now down to 18. Vital stable afebrile Abdomen is soft he does have bowel sounds. Tender in the left abdomen. Continue clear liquids. Recheck labs tomorrow. History of Present Illness Reason for Consultation: Colitis Requesting Physician: John Gayle MD Attending Physician: Jame Hernandez DO History of Present Illness Patient is a 59 year old male with a past medical history of hypertension and high cholesterol presented to the ED on 04/15 for evaluation after having a syncopal episode. He states that he started having some abdominal cramping that morning while helping his daughter to move back home and thought he had to move his bowels. While he was moving his bowels he was straining and had passed out. Daughter found the patient and had called 911 and started CPR on her father. During this time, he was passing brown liquid stool. Since here, he started having bloody bowel movements which have been ongoing. He had CT scan suggestive of colitis (see below). He does feel like since admission that bleeding is slowing down but is still present. Abdominal pain has improved. The remainder of the GI ros are unremarkable. 04/16/25 wbc 18.94, hgb 15.1, hct 41.8, plts 256, Na 136, K 4.2, BUN 21, Ct 1.2, T bili 1, AST 34, ALT 31, ALK 68. CTA 04/15/25 Mild descending colitis likely of infectious or inflammatory etiology. No evidence of gastrointestinal hemorrhage identified on this study. Allergies Allergy/AdvReac Type Severity Reaction Status Date / Time Penicillins Allergy Unknown Unknown Verified 04/15/25 19:09 Home Medications Medication Instructions Recorded Confirmed Type amlodipine 10 mg tablet 10 mg PO QAM 04/15/25 04/15/25 History aspirin 81 mg tablet,delayed 81 mg PO QAM 04/15/25 04/15/25 History release cephalexin 500 mg capsule 500 mg PO Q6 04/15/25 04/15/25 History escitalopram oxalate 20 mg tablet 20 mg PO QAM 04/15/25 04/15/25 History esomeprazole magnesium 40 mg 40 mg PO QAM 04/15/25 04/15/25 History capsule,delayed release ezetimibe 10 mg tablet 10 mg PO QAM 04/15/25 04/15/25 History hydrochlorothiazide 25 mg tablet 25 mg PO QAM 04/15/25 04/15/25 History lamotrigine 200 mg tablet 300 mg PO QAM 04/15/25 04/15/25 History losartan 100 mg tablet 100 mg PO QAM 04/15/25 04/15/25 History rosuvastatin 40 mg tablet 40 mg PO QAM 04/15/25 04/15/25 History sildenafil 100 mg tablet 100 mg PO DAILY PRN Erectile 04/15/25 04/15/25 History Dysfunction tirzepatide (weight loss) 12.5 12.5 mg subcut WK 04/15/25 04/15/25 History mg/0.5 mL subcutaneous pen injector (Zepbound) Patient History Medical History History of high cholesterol Hypertension Social History Smoking Status: Never smoker Tobacco Type: Cigarettes Do You Dip or Chew Tobacco: Yes; Hx Alcohol Use: Yes Alcohol type: other Hx Substance Use: No Preferred Language: Hungarian Communication Ability: Effective Circular Clerk Required: No Beliefs That Will Affect Care: None Current Living Situation: Parent Other Information That Helps Us Care for You: No Feels Safe at Home: Yes Safety Concerns: Feels Safe At This Time Assistive Devices: None Review of Systems Review of Systems: All systems reviewed & are unremarkable except as noted in HPI & below Physical Exam Constitutional: WD/WN, vitals as above Respiratory: normal respiratory effort, lungs clear to auscultation Cardiovascular: Rate/Rhythm: regular rate and regular rhythm Gastrointestinal (Abdomen): normal bowel sounds, soft, nontender, no hepatosplenomegaly Psychiatric: Orientation: alert and oriented x 3 Affect: euthymic affect Results & Data Vital Signs (Past 12 Hours) Vital Signs Temp Pulse Pulse Resp BP Pulse Ox O2 Del Method 04/16/25 08:08 98.3 F 69 20 137/64 94 Room Air 04/16/25 08:08 86 04/16/25 03:26 67 04/16/25 03:03 98.1 F 73 18 131/64 93 Room Air 04/15/25 23:50 67 04/15/25 23:00 66 17 Coding Level of Care Code 15538 IN/OBS CONSULT LVL 4,60M Diagnoses Colitis K52.9
[2025-04-16] MEDS ORDERED: ONDANSETRON INJ 2 MG/ML 2 ML VIAL IV PRN (10:52)
[2025-04-16] MEDS: EZETIMIBE 10 MG TAB PO SCH (12:57)
[2025-04-16] MEDS: lamoTRIgine 100 MG TAB PO SCH (12:57)
[2025-04-16] MEDS: THIAMINE HCL 100 MG TAB PO SCH (12:57)
[2025-04-16] MEDS: ESCITALOPRAM OXALATE 20 MG TAB PO SCH (12:58)
[2025-04-16] MEDS: MULTIVITAMIN TAB PO SCH (12:58)
[2025-04-16] MEDS: FOLIC ACID 1 MG TAB PO SCH (12:58)
[2025-04-17 08:05] LABS: Hematocrit (blood only) 36.2 % (42.0-52.0); Hemoglobin 12.8 g/dL (14.0-18.0); Mean Corpuscular Hemoglobin 32.5 pg (25.0-34.0); Mean Corpuscular Volume 91.9 fL (80.0-100.0); Platelet Count 188 K/uL (130-400); RDW Standard Deviation 43.8 fL (36.4-46.3); Red Blood Count 3.94 M/uL (4.70-6.10); White Blood Count 10.22 K/ul (4.8-10.8)
[2025-04-17 08:26] LABS: Alanine Aminotransferase 21.0 U/L (7-52); Albumin Globulin Ratio 1.8 (0.9-2); Albumin Level 3.8 gm/dl (3.4-5.0); Alkaline Phosphatase 57.0 U/L (34-104); Anion Gap 6.0 (3-11); Bilirubin,Total 0.8 mg/dl (0.2-1.0); Blood Urea Nitrogen 9.0 mg/dl (6-23); Calcium 8.2 mg/dl (8.6-10.3); Carbon Dioxide 30.0 mmol/L (21-32); Chloride 105.0 mmol/L (98-107); Creatinine Clr Calc Pharmacy 112.2 ml/min; Globulin 2.1 gm/dl (2.5-4.0); Glucose 95.0 mg/dl (70-99(Fasting)); Potassium 3.6 mmol/L (3.5-5.1); Sodium 141.0 mmol/L (136-145); Total Protein 5.9 gm/dl (6.0-8.3)
--- NOTE | 2025-04-17 10:17 | Hospitalist Progress Note ---
Date of Service April 17, 2025 Assessment & Plan (1) Colitis: Plan: 59M with PMH HTN HLD anxiety mood disorder, alcohol use who presents with syncopal episode of bloody bowel movement #Hemorrhagic colitis -No history of same -No emesis -CT AP images reviewed, Descending colitis. 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 diff negative -Stool studies negative -Differential incudes infectious vs inflammatory vs ischemia -Still having bloody diarrhea as of this AM but greatly improving -Hgb Downtrending to 12.8 from 15.1 today. Acute blood loss anemia -Hgb drop multifactorial due to bleeding and dilutional from IVF -Expect his Hgb to stabilize since his BRBPR is almost gone -Leukocytosis resolved Plan -Appreciate GI input -Currently on CTX + flagyl due to leukocytosis. Possibly discontinue tomorrow if he remains afebrile and WBC remains normal -Advance to solids today. tolerating CLD -Symptomatic management for nausea -DC IVF -Follow Hgb, transfuse < 7.0 -Anticipate DC home tomorrow if Hgb stable, bleeding resolves and tolerates solids #Syncopal episode -ISO straining bowel movement -Consistent with vasovagal syncope -Do not believe he went into cardiac arrest after d/w daughter at bedside -Non specific trop elevation due to CPR, MICHAELLE. Low suspicion for ACS -TTE reviewed, normal EF, no WMAs Plan -Continue cardiac monitoring for today #Acute kidney injury -Pre renal due to above -CK mildly elevated but low suspicion for rhabdo -He was not in acute renal failure -MICHAELLE resolved with IVF Plan -IVF DC today -BMP in AM -Avoid nephrotoxic agents -Hold home hctz #HTN -BP acceptable -Resume home norvasc tomorrow if BP allows -Hold home HCTZ for now #Alcohol use -Intermittent heavy use, no s/s withdrawal at this time. monitor #HLD -Continue zetia -Hold crestor due to elevated CK but can resume on DC #Mood disorder -Continue home lamictal I spent a total of 53 minutes coordinating, documenting, and providing care for this patient excluding time spent in the performance of separately billed services. This included personally reviewing all current laboratories and imaging studies, medical reconciliation, outpatient chart review and discussion with specialists Admission and Anticipated Discharge Date Admission Date: April 15, 2025 Subjective Feeling well this AM. much better than yesterday. Still c/o bloody diarrhea but greatly improved from admission. abd pain still present but improving as well. denies f/c cp palp dyspnea cough wheez. no dysuria Physical Exam Physical Exam: Vitals and labs reviewed General: Well appearing, NAD HEENT: EOMI, PERRLA Neck: Supple Cardiac: RRR no rubs gallops or murmurs Lungs: CTA no rhonchi wheezing or rales Abd: S NT ND BS positive : no waggoner MSK: Full ROM. No obvious deformities Ext: No Edema cyanosis Skin: Warm, Dry Neuro: AOx3 No focal deficits. Psych: Normal Mood Results & Data Results & Data Vital Signs (Past 12 Hours) Vital Signs Temp Pulse Pulse Resp BP Pulse Ox O2 Del Method 04/17/25 07:50 36.8 C 60 16 129/66 93 Room Air 04/17/25 07:16 62 04/17/25 03:07 36.4 C L 63 18 127/70 97 Nasal Cannula 04/16/25 23:03 36.9 C 72 18 144/75 H 93 Room Air O2 Flow Rate 04/17/25 07:50 04/17/25 07:16 04/17/25 03:07 2 04/16/25 23:03 Laboratory Results Abnormal lab results 04/17/25 Range/Units 06:54 RBC 3.94 L (4.70-6.10) M/uL Hgb 12.8 L (14.0-18.0) g/dL Hct 36.2 L (42.0-52.0) % MPV 9.3 L (9.4-12.4) fL BUN/Creatinine Ratio 9.2 L (10-20) Calcium 8.2 L (8.6-10.3) mg/dl Total Protein 5.9 L (6.0-8.3) gm/dl Globulin 2.1 L (2.5-4.0) gm/dl
--- NOTE | 2025-04-17 10:36 | Gastroenterology Progress Note ---
Date of Service April 17, 2025 Assessment & Plan (1) Colitis: Plan Ischemic colitis seems to be improving. Pain and bleeding less than previous. - continue with supportive care. - he will need to follow with his regular employee relations specialist when he returns home. - Further recommendations to come with Supervising GI provider on medical rounds. Please see co-signature comments. Admission and Anticipated Discharge Date Admission Date: April 15, 2025 Supervising Physician Co-Signing Physician Notes Ischemic colitis. Clinically much better. Pain significantly resolved. Still having some bleeding which may persist for a few days. Hemoglobin good at 12.8 though decreased over his admission. As long as counts reasonable stable tomorrow pain remains controlled with p.o. intake I believe he can be discharged. He should follow-up with his employee relations specialist in [place]. I would recommend a colonoscopy in 8 to 12 weeks. Stay hydrated. Subjective Patient is having less pain, though still mild in lower abdomen. He still notes some bleeding, but significantly less than it was before. no other GI concerns currently. 04/17/25 wbc 10.22, hgb 12.8, hct 36.2, plts 188, Na 141, K 3.6, BUN 9, Cr 0.98. LFTs wnl. Review of Systems Review of Systems: All systems reviewed & are unremarkable except as noted in HPI & below Physical Exam Constitutional: WD/WN, vitals as above Respiratory: normal respiratory effort, lungs clear to auscultation Cardiovascular: Rate/Rhythm: regular rate and regular rhythm Gastrointestinal (Abdomen): normal bowel sounds, soft, nontender, no hepatosplenomegaly Psychiatric: Orientation: alert and oriented x 3 Affect: euthymic affect Results & Data Results & Data Vital Signs (Past 12 Hours) Vital Signs Temp Pulse Pulse Resp BP Pulse Ox O2 Del Method 04/17/25 07:50 98.2 F 60 16 129/66 93 Room Air 04/17/25 07:16 62 04/17/25 03:07 97.5 F L 63 18 127/70 97 Nasal Cannula 04/16/25 23:03 98.4 F 72 18 144/75 H 93 Room Air O2 Flow Rate 04/17/25 07:50 04/17/25 07:16 04/17/25 03:07 2 04/16/25 23:03 Coding Level of Care Code 74373 SUB INP/OBS CARE 05/27MIN Diagnoses Colitis K52.9
[2025-04-17 20:34] VITALS: RESP 18
[2025-04-17] MEDS: LORazepam 0.5 MG TAB PO PRN (22:19)
--- NOTE | 2025-04-18 06:38 | Electrocardiogram Report ---
Test Reason : Blood Pressure : */* mmHG Vent. Rate : 80 BPM Atrial Rate : 80 BPM P-R Int : 152 ms QRS Dur : 78 ms QT Int : 400 ms P-R-T Axes : 70 11 38 degrees QTcB Int : 461 ms Poor data quality, interpretation may be adversely affected Normal sinus rhythm No previous ECGs available Confirmed by Brad Lewis ([id number]) on 04/18/2025 6:37:42 AM Referred By: Confirmed By: Brad Lewis
[2025-04-18] MEDS: ALUMINUM/MAGNESIUM SUSP 30 ML UDC PO PRN (09:59)
--- NOTE | 2025-04-18 10:24 | Hospitalist Progress Note ---
Date of Service April 18, 2025 Assessment & Plan (1) Colitis: Plan: 59M with PMH HTN HLD anxiety mood disorder, alcohol use who presents with syncopal episode of bloody bowel movement Ischemic colitis. Acute blood loss anemia Rectal bleed disease secondary to ischemic colitis -No history of same,No emesis -CT AP images reviewed, Descending colitis. -No history of IBD -On keflex for dental infection but C. diff negative -Stool studies negative -Hgb Downtrending to 12.8 from 15.1 -Expect his Hgb to stabilize since his BRBPR is almost gone -Leukocytosis resolved -Appreciate GI input -Currently on CTX + flagyl due to leukocytosis. Possibly discontinue tomorrow if he remains afebrile and WBC remains normal -Advance to solids today. tolerating CLD -Symptomatic management for nausea - received IV fluid initially - no more rectal bleed and the abdominal pain has almost resolved Has been tolerating regular diet without any significant symptoms Appreciate GI input and recommendationWill need colonoscopy in 6 to 8 weeks He will be discharged home this afternoon and was advised to make an appointment with his PCP in about a week - will continue oral Keflex and Flagyl for a total of 10 days - His CBC-Hb 12.9 and PRP are unremarkable #Syncopal episode -ISO straining bowel movement -Consistent with vasovagal syncope -Do not believe he went into cardiac arrest after d/w daughter at bedside -Non specific trop elevation due to CPR, MICHAELLE. Low suspicion for ACS -TTE reviewed, normal EF, no WMAs #Acute kidney injury -Pre renal due to above -CK mildly elevated but low suspicion for rhabdo -He was not in acute renal failure -MICHAELLE resolved with IVF #HTN -BP acceptable -Resume home norvasc tomorrow if BP allows -Hold home HCTZ for now Home HCTZ will be restarted following discharge #Alcohol use -Intermittent heavy use, no s/s withdrawal at this time. monitor #HLD -Continue zetia -Hold crestor due to elevated CK but can resume on DC #Mood disorder -Continue home lamictal I spent a total of 52 minutes coordinating, documenting, and providing care for this patient. This included personally reviewing all current laboratories and imaging studies, medical reconciliation, outpatient chart review and discussion with specialists. Admission and Anticipated Discharge Date Admission Date: April 15, 2025 Subjective 04/18/2025 The patient was seen and examined in medical telemetry He has been much better and complains minimal discomfort in the left lower quadrant of abdomen Has had bowel movement and no evidence of blood in stool He has been eating and drinking reasonably He will be discharged this afternoon Review of Systems Review of Systems: All systems reviewed and are unremarkable except as noted below Physical Exam Physical Exam: Sitting at the edge of the bed without any acute distress Constitutional: well developed, well nourished and + obese; not ill appearing Eyes: PERRL, conjunctivae normal, anicteric sclerae ENMT: external ear and nose normal, oropharynx normal Neck: trachea midline, no thyromegaly Respiratory: no respiratory distress Auscultation: lungs clear to auscultation bilaterally Cardiovascular: Rate/Rhythm: regular rate, regular rhythm and + bradycardic Heart Sounds: normal S1 and normal S2; no murmur Gastrointestinal (Abdomen): Inspection/Auscultation: normal bowel sounds; abdomen not distended Percussion/Palpation: + abdomen tender (Minimal discomfort left lower quadrant, no guarding and no rigidity) and abdomen soft Musculoskeletal: No acute arthritis involving any of the joint Neurologic: normal touch/pain/proprioception and moves all extremities; no focal motor deficits Psychiatric: A+Ox3, euthymic affect Lymphatic: no cervical or axillary lymphadenopathy Results & Data Results & Data Vital Signs (Past 12 Hours) Vital Signs Temp Pulse Pulse Resp BP Pulse Ox O2 Del Method 04/18/25 07:43 36.7 C 58 L 18 143/77 H 95 Room Air 04/18/25 07:03 57 L 04/18/25 03:08 36.6 C 60 18 151/81 H 99 Nasal Cannula 04/17/25 23:41 36.7 C 65 18 141/78 H 97 Nasal Cannula 04/17/25 23:31 Nasal Cannula O2 Flow Rate 04/18/25 07:43 04/18/25 07:03 04/18/25 03:08 2 04/17/25 23:41 2 04/17/25 23:31 2 Medications Administered Current Inpatient Medications Acetaminophen (Acetaminophen 325 Mg Tab) 650 mg PO QID PRN PRN Reason: pain/fever Stop: 05/15/25 21:28 Al Hydrox/Mg Hydrox/Simethicone (Aluminum/Magnesium Susp 30 Ml Udc) 30 ml PO Q6H PRN PRN Reason: Dyspepsia Stop: 05/18/25 08:04 Last Admin: 04/18/25 09:59 Dose: 30 ml Ezetimibe (Ezetimibe 10 Mg Tab) 10 mg PO [facility] Stop: 05/16/25 08:59 Last Admin: 04/18/25 07:59 Dose: 10 mg Escitalopram Oxalate (Escitalopram Oxalate 20 Mg Tab) 20 mg PO [facility] Stop: 05/16/25 08:59 Last Admin: 04/18/25 07:59 Dose: 20 mg Folic Acid (Folic Acid 1 Mg Tab) 1 mg PO [facility] Stop: 05/16/25 08:59 Last Admin: 04/18/25 07:59 Dose: 1 mg Ceftriaxone Sodium (Rocephin) 2,000 mg in 50 mls @ 100 mls/hr IV Q24H [facility] Stop: 04/26/25 02:59 Last Infusion: 04/18/25 06:36 Dose: Infused Metronidazole (Flagyl) 500 mg in 100 mls @ 100 mls/hr IV Q8H [facility]; Protocol Stop: 04/26/25 04:59 Last Infusion: 04/18/25 06:58 Dose: Infused Promethazine HCl (Phenergan) 12.5 mg in 50.5 mls @ 202 mls/hr IV Q6H PRN PRN Reason: Nausea And Vomiting Stop: 05/15/25 21:28 Last Infusion: 04/16/25 09:48 Dose: Infused Lorazepam 1 mg/ Syringe 1.5 mls @ 2 mls/min IV UD PRN; Protocol PRN Reason: AWSS 6 & Above Stop: 05/15/25 21:34 Lamotrigine (Lamotrigine 100 Mg Tab) 300 mg PO [facility]; Protocol Stop: 05/16/25 08:59 Last Admin: 04/18/25 07:59 Dose: 300 mg Loperamide HCl (Loperamide Hcl 2 Mg Cap) 2 mg PO Q4H PRN PRN Reason: Loose Stool Stop: 05/16/25 09:37 Last Admin: 04/18/25 09:59 Dose: 2 mg Lorazepam (Lorazepam 0.5 Mg Tab) 0.5 mg PO TID PRN PRN Reason: Anxiety Stop: 05/15/25 21:28 Last Admin: 04/17/25 22:19 Dose: 0.5 mg Multivitamins (Multivitamin Tab) [facility] [place] Stop: 05/16/25 08:59 Last Admin: 04/18/25 07:59 Dose: 1 tab Ondansetron HCl (Ondansetron Inj 2 Mg/Ml 2 Ml Vial) 4 mg IV Q6H PRN PRN Reason: Nausea And Vomiting Stop: 05/16/25 10:51 Oxycodone HCl (Oxycodone Hcl Ir 5 Mg Tab (Immediate Release)) 5 - 10 mg PO QID PRN PRN Reason: Pain Stop: 04/29/25 21:28 Last Admin: 04/17/25 07:39 Dose: 5 mg Pantoprazole Sodium (Pantoprazole 40 Mg Tab) 40 mg PO [facility] Stop: 05/16/25 08:59 Last Admin: 04/18/25 07:59 Dose: 40 mg Thiamine HCl (Thiamine Hcl 100 Mg Tab) 100 mg PO [facility] Stop: 05/16/25 08:59 Last Admin: 04/18/25 07:59 Dose: 100 mg I was
--- NOTE | 2025-04-18 10:45 | Gastroenterology Progress Note ---
Date of Service April 18, 2025 Assessment & Plan (1) Colitis: Plan Ischemic colitis seems to be improved. Pain and bleeding has resolved. - okay for discharge from a GI standpoint. 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 recommended a follow up colonoscopy in 8-12 weeks with his home GI. Admission and Anticipated Discharge Date Admission Date: April 15, 2025 Subjective Patient tells me he is feeling much better. he has been tolerating his diet. stools are loose, but no further bleeding. abdominal pain has resolved. he feels that he is ready for discharge to home. Review of Systems Review of Systems: All systems reviewed & are unremarkable except as noted in HPI & below Physical Exam Constitutional: WD/WN, vitals as above Respiratory: normal respiratory effort, lungs clear to auscultation Cardiovascular: Rate/Rhythm: regular rate and regular rhythm Gastrointestinal (Abdomen): normal bowel sounds, soft, nontender, no hepatosplenomegaly Psychiatric: Orientation: alert and oriented x 3 Affect: euthymic affect Results & Data Results & Data Vital Signs (Past 12 Hours) Vital Signs Temp Pulse Pulse Resp BP Pulse Ox O2 Del Method 04/18/25 07:43 98.1 F 58 L 18 143/77 H 95 Room Air 04/18/25 07:03 57 L 04/18/25 03:08 97.9 F 60 18 151/81 H 99 Nasal Cannula 04/17/25 23:41 98.1 F 65 18 141/78 H 97 Nasal Cannula 04/17/25 23:31 Nasal Cannula O2 Flow Rate 04/18/25 07:43 04/18/25 07:03 04/18/25 03:08 2 04/17/25 23:41 2 04/17/25 23:31 2 Coding Level of Care Code 76348 SUB INP/OBS CARE 05/27MIN Diagnoses Colitis K52.9
[2025-04-18 11:22] LABS: Hematocrit (blood only) 37.2 % (42.0-52.0); Hemoglobin 12.9 g/dL (14.0-18.0); Immature Granulocytes # (auto) 0.02 K/uL (0.01-0.20); Immature Granulocytes % (auto) 0.3 %; Mean Corpuscular Hemoglobin 31.7 pg (25.0-34.0); Mean Corpuscular Volume 91.4 fL (80.0-100.0); Platelet Count 168 K/uL (130-400); RDW Standard Deviation 42.2 fL (36.4-46.3); Red Blood Count 4.07 M/uL (4.70-6.10); White Blood Count 6.87 K/ul (4.8-10.8)
[2025-04-18 11:37] LABS: Anion Gap 6.0 (3-11); Blood Urea Nitrogen 9.0 mg/dl (6-23); Calcium 8.8 mg/dl (8.6-10.3); Carbon Dioxide 31.0 mmol/L (21-32); Chloride 103.0 mmol/L (98-107); Creatinine Clr Calc Pharmacy 105.0 ml/min; Glucose 114.0 mg/dl (70-99(Fasting)); Potassium 3.7 mmol/L (3.5-5.1); Sodium 140.0 mmol/L (136-145)
[2025-04-18 11:38] VITALS: BP 155/84; PULSE 62; TEMP 98.2; O2SAT 92
--- NOTE | 2025-04-18 12:26 | Discharge Summary ---
Date of Service April 18, 2025 Admission HPI Per Admitting Provider History obtained from patient, family, and records. Medical history significant for hypertension, hyperlipidemia, lung carcinoid status post surgery, prediabetes, GERD, mood disorder, occasional heavy alcohol intake, dental infection ongoing Keflex Rx, past tobacco abuse. 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 Daughter is graduating from [employer] next week. Patient had sudden onset of achy left-sided abdominal pain accompanied by sudden urge to defecate. Patient straining hard to move bowels on the commode. Unwitnessed syncopal event causing patient to fall off the toilet. No head trauma. No witnessed seizures. Patient daughter heard noise and found patient "breathing not very good." Patient daughter unable to check for pulse at onset. She called 911 who recommended chest compressions. Patient noted to have a pulse and spontaneously breathing although diaphoretic upon EMS arrival. Patient woke up with a sternal rub. Patient noted to be hypotensive as per EMS. Patient denies headache, chest pain, SOB, cough. Some nausea, no emesis. Last EtOH intake was about 2 days ago. Occasionally heavy as per patient admission. IV cefoxitin administered at the ER. Copious bloody diarrhea noted at the Emergency Room. No prior episodes. 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 Admission Exam Per Admitting Provider Physical Exam: GENERAL: uncomfortable, obese, no respiratory distress SKIN: Normal color, warm HEENT: Alopecia, pink palpebral conjunctivae, no ptosis, dry buccal mucosa NECK : Supple, short neck, no tenderness CHEST : CTA, no tenderness HEART : RRR, no obvious murmurs ABDOMEN: Some distention, left-sided abdominal tenderness EXTREMITIES : No LE swelling/tenderness, palpable pulses, no other conspicuous deformities noted NEUROLOGIC : Coherent, no facial asymmetry, no other gross focality Principal Diagnosis Ischemic colitis, lower GI bleed- resolved Discharge Exam Sitting at the edge of the bed without any acute distress Constitutional well developed, well nourished and + obese; not ill appearing Eyes PERRL, conjunctivae normal, anicteric sclerae ENMT external ear and nose normal, oropharynx normal Neck trachea midline, no thyromegaly Respiratory no respiratory distress Auscultation: lungs clear to auscultation bilaterally Cardiovascular Rate/Rhythm: regular rate, regular rhythm and + bradycardic Heart Sounds: normal S1 and normal S2; no murmur Gastrointestinal (Abdomen) Inspection/Auscultation: normal bowel sounds; abdomen not distended Percussion/Palpation: + abdomen tender (Minimal discomfort left lower quadrant, no guarding and no rigidity) and abdomen soft Neurologic normal touch/pain/proprioception and moves all extremities; no focal motor deficits Psychiatric A+Ox3, euthymic affect Lymphatic no cervical or axillary lymphadenopathy Discharge Data Allergies Allergy/AdvReac Type Severity Reaction Status Date / Time Penicillins Allergy Unknown Unknown Verified 04/15/25 19:09 Consultations 04/15/25 20:01 ED Decision to Admit Stat 04/15/25 21:24 Consult Gastroenterology Routine Ordered Studies 04/15/25 17:34 CT head/brain wo con Stat 04/15/25 18:36 CT angio chest PE protocol Stat 04/15/25 19:07 CT angio abdomen pelvis w con Stat Hospital Course (1) Colitis: 59M with PMH HTN HLD anxiety mood disorder, alcohol use who presents with syncopal episode of bloody bowel movement Ischemic colitis. Acute blood loss anemia Rectal bleed disease secondary to ischemic colitis -No history of same,No emesis -CT AP images reviewed, Descending colitis. -No history of IBD -On keflex for dental infection but C. diff negative -Stool studies negative -Hgb Downtrending to 12.8 from 15.1 -Expect his Hgb to stabilize since his BRBPR is almost gone -Leukocytosis resolved -Appreciate GI input -Currently on CTX + flagyl due to leukocytosis. Possibly discontinue tomorrow if he remains afebrile and WBC remains normal -Advance to solids today. tolerating CLD -Symptomatic management for nausea - received IV fluid initially - no more rectal bleed and the abdominal pain has almost resolved Has been tolerating regular diet without any significant symptoms Appreciate GI input and recommendationWill need colonoscopy in 6 to 8 weeks He will be discharged home this afternoon and was advised to make an appointment with his PCP in about a week - will continue oral Keflex and Flagyl for a total of 10 days - His CBC-Hb 12.9 and PRP are unremarkable #Syncopal episode -ISO straining bowel movement -Consistent with vasovagal syncope -Do not believe he went into cardiac arrest after d/w daughter at bedside -Non specific trop elevation due to CPR, MICHAELLE. Low suspicion for ACS -TTE reviewed, normal EF, no WMAs #Acute kidney injury -Pre renal due to above -CK mildly elevated but low suspicion for rhabdo -He was not in acute renal failure -MICHAELLE resolved with IVF #HTN -BP acceptable -Resume home norvasc tomorrow if BP allows -Hold home HCTZ for now Home HCTZ will be restarted following discharge #Alcohol use -Intermittent heavy use, no s/s withdrawal at this time. monitor #HLD -Continue zetia -Hold crestor due to elevated CK but can resume on DC #Mood disorder -Continue home lamictal I spent a total of 52 minutes coordinating, documenting, and providing care for this patient. This included personally reviewing all current laboratories and imaging studies, medical reconciliation, outpatient chart review and discussion with specialists. Total Time Total Time Spent Total Time Spent (In Minutes): 35 Minutes Discharge Plan Discharge Items Patient Disposition: Home - Self-Care Reason For Visit: COLITIS, LGIB Discharge Diagnosis: Ischemic colitis, lower GI bleed- resolved Condition on Discharge: Good Activity: Resume your previous activity Non-emergency contact: Primary Care Provider Call non-emergency contact if: you have any medication questions and your symptoms worsen Follow-up/Referrals: PCP,NO [Primary Care Provider] - ( Please make an appointment with your PCP within 7 days following discharge) Diet: Regular Addtl Attending Provider Instructions: please take your medications as advised Try to keep your self hydrated Please make an appointment with your PCP You will need to have a colonoscopy in about 8 to 12 weeks. Pending Studies at Discharge: No Stand-Alone Forms: My [employer], Smoking Cessation Medications and DC Order Prescriptions: New thiamine HCl (vitamin B1) 100 mg Tablet 100 mg PO QAM Qty: 30 0RF folic acid 1 mg Tablet 1 mg PO QAM Qty: 30 0RF multivitamin with folic acid [Daily-Eduard (with folic acid)] 400 mcg Tablet 1 tab PO QAM Qty: 30 0RF cephalexin 500 mg capsule 500 mg PO Q8H 7 Days Qty: 21 0RF metronidazole 500 mg tablet 500 mg PO Q8H 7 Days Qty: 21 0RF Continued lamotrigine 200 mg tablet 300 mg PO QAM Rx Instructions: 1 & 1/2 tablet dose sildenafil 100 mg tablet 100 mg PO DAILY PRN (Reason: Erectile Dysfunction) amlodipine 10 mg tablet 10 mg PO QAM cephalexin 500 mg capsule 500 mg PO Q6 Rx Instructions: ordered 04/06/25 for 10 days esomeprazole magnesium 40 mg capsule,delayed release(DR/EC) 40 mg PO QAM hydrochlorothiazide 25 mg tablet 25 mg PO QAM losartan 100 mg tablet 100 mg PO QAM escitalopram oxalate 20 mg tablet 20 mg PO QAM ezetimibe 10 mg tablet 10 mg PO QAM rosuvastatin 40 mg tablet 40 mg PO QAM Zepbound 12.5 mg/0.5 mL pen injector 12.5 mg SUBCUT WK Rx Instructions: tuesdays aspirin 81 mg Tablet,Delayed Release (Dr/Ec) 81 mg PO QAM Discharge Orders: Discharge Order (Routine); Ordered 04/18/25 Ordered By: Ashok Pozo Admission Data Admit Date/Time: 04/15/25 20:51 Attending Provider: Ashok Pozo Admit Provider: John Gayle Primary Care Provider: PCP,NO Other Providers: John Gayle; Adrianne Boyle; Cecilio Hearn; Kiara Larry; Gini Olmedo; Yessica Malik; Lea Zambrano; aHrsh Beckett; Sheyla Villasenor; Abhijeet Alcocer; Bhupinder Wiggins; Angela Morales; Leydi Bustos; Argelia Henderson; Marce Hurtado; Jesus Chapman; Joe Salas; Diya Liang; Tyson Serrano Jr; Kam Daniel; Wesley Shepherd; Marito Bauman; Tracy Rosario; Jose Lr I; Kristine Portillo; Benjamín Jewell; Donnie Hook; William Napoles; Thierry Garcia; Jame Hernandez Other Interventions: Discharge Summary Assessment (RN) Last Done: 04/18/25 11:19
== END 2025-04-18 12:04 | disposition home or self-care (01) | DRG 394 ==
LOC: ED 17:26 → ASUINP 20:51 → SUATTDRO 20:51 → 2N 22:41
DX: I95.1 Orthostatic hypotension; Z87.891 Personal history of nicotine dependence; Z79.899 Other long term (current) drug therapy; Z88.0 Allergy status to penicillin; E87.6 Hypokalemia; K04.7 Periapical abscess without sinus; W18.11XA Fall from or off toilet without subsequent striking against object, initial encounter; F10.90 Alcohol use, unspecified, uncomplicated; I10 Essential (primary) hypertension; D62 Acute posthemorrhagic anemia; R73.03 Prediabetes; K55.9 Vascular disorder of intestine, unspecified; C7A.090 Malignant carcinoid tumor of the bronchus and lung; F41.9 Anxiety disorder, unspecified; K21.9 Gastro-esophageal reflux disease without esophagitis; E87.20 Acidosis, unspecified; N17.9 Acute kidney failure, unspecified; Z82.49 Family history of ischemic heart disease and other diseases of the circulatory system; K92.2 Gastrointestinal hemorrhage, unspecified; E78.5 Hyperlipidemia, unspecified; Z79.82 Long term (current) use of aspirin; E03.9 Hypothyroidism, unspecified; Z90.2 Acquired absence of lung [part of]